=== PATIENT | male | born 1985 | race Caucasian/White ===

== ENCOUNTER 2023-07-13 11:56 | Outpatient (CLI) | payer OTHER, SELFPAY | END 2023-07-13 11:57 | disposition home or self-care (01) | LOC: AMB 07-19 01:54 | PROVIDERS: PCP Family Medicine; Visit Provider Family Medicine | DX: R41.82 Altered mental status, unspecified (principal); R20.0 Anesthesia of skin | CPT/HCPCS: A0425; A0427 ==

== ENCOUNTER 2023-07-13 12:32 | Observation (INO) | payer OTHER, SELFPAY ==
[2023-07-13] VITALS (21 sets, daily range): BP systolic 123–150; BP diastolic 78–110; PULSE 60–84; RESP 16–18; TEMP 36.6–37; O2SAT 94–99; BMI 41.7
--- NOTE | 2023-07-13 12:37 | CRLHL7_ITS ---
For Patients: As a result of the Century Cures Act, medical imaging exams and procedure reports are released immediately into your electronic medical record. You may view this report before your referring provider. If you have questions, please contact your health care provider. INDICATION: Acute stroke, right facial droop, arm numbness, aphasia. TECHNIQUE: CTA neck with contrast bolus tracking, 3D angiographic rendering using maximum intensity projection (MIP) and images permanently archived. FINDINGS: There is no significant carotid artery stenosis or dissection. There is no significant vertebral artery stenosis or dissection. The soft tissues of the neck are within normal limits. The cervical spine is in normal alignment. IMPRESSION: Unremarkable neck CTA. No significant carotid or vertebral artery stenosis or dissection. Please note that all CT scans at this facility use dose modulation, iterative reconstruction, and/or weight-based dosing when appropriate to reduce radiation dose to as low as reasonably achievable. Dictated by Medardo Rodriguez MD @ 07/13/2023 2:19:14 PM (Electronically Signed)
--- NOTE | 2023-07-13 12:37 | CRLHL7_ITS ---
For Patients: As a result of the Century Cures Act, medical imaging exams and procedure reports are released immediately into your electronic medical record. You may view this report before your referring provider. If you have questions, please contact your health care provider. INDICATION: Acute stroke, right facial droop, arm numbness, aphasia. TECHNIQUE: CTA head with contrast bolus tracking, 3D angiographic rendering using maximum intensity projection (MIP) and images permanently archived. FINDINGS: There is normal opacification of the intracranial vasculature. There is no large vessel occlusion. No aneurysm is identified. IMPRESSION: Unremarkable head CTA. Please note that all CT scans at this facility use dose modulation, iterative reconstruction, and/or weight-based dosing when appropriate to reduce radiation dose to as low as reasonably achievable. Dictated by Medardo Rodriguez MD @ 07/13/2023 2:17:50 PM (Electronically Signed)
--- NOTE | 2023-07-13 12:51 | CRLHL7_ITS ---
For Patients: As a result of the Cures Act, medical imaging exams and procedure reports are released immediately into your electronic medical record. You may view this report before your referring provider. If you have questions, please contact your health care provider. INDICATION: Right facial droop, arm numbness, aphasia COMPARISON: None. TECHNIQUE: CT of the head without contrast. Multiplanar reformats are included. FINDINGS: No intracranial hemorrhage. No acute or subacute cortically based infarct. Normal appearance of the white matter. No mass or mass effect. Normal ventricles. No skull fractures. No worrisome focal bone lesion. IMPRESSION: Normal head CT. Please note that all CT scans at this facility use dose modulation, iterative reconstruction, and/or weight-based dosing when appropriate to reduce radiation dose to as low as reasonably achievable. Dictated by Zahida Shay MD @ 07/13/2023 1:08:40 PM (Electronically Signed)
[2023-07-13 13:02] LABS: Basophils Absolute Auto 0.01 K/uL (0.00-0.30); Basophils Percent Auto 0.1 % (0.0-3.0); Eosinophils Absolute Auto 0.15 K/uL (0.00-0.50); Eosinophils Percent Auto 2.2 % (0.0-7.0); Hemoglobin* 14.5 gm/dL (13.5-17.5); Immature Granulocytes Abs Auto 0.01 K/uL (0.00-0.30); Immature Granulocytes Pct Auto 0.1 %; Lymphocytes Absolute Auto 2.25 K/uL (0.90-2.90); Mean Corpuscular HGB Conc 33 gm/dL (32-36); Mean Corpuscular Hemoglobin 29 pg (26-34); Mean Corpuscular Volume 86 fL (80-100); Monocytes Percent Auto 6.8 % (0.0-11.0); Neutrophils Absolute Auto 3.93 K/uL (1.7-7.0); Neutrophils Percent Auto 57.8 % (42.0-72.0); Platelet Count* 202 K/uL (140-440); RDW Coefficient of Variation % 11.8 % (11.5-15.5); Red Blood Count 5.09 m/uL (4.30-5.90); White Blood Count* 6.81 K/uL (4.50-11.00)
[2023-07-13 13:08] LABS: Slide Review Reflex No
[2023-07-13 13:14] LABS: Chloride* 105 mmol/L (96-114)
[2023-07-13 13:15] LABS: Potassium* 3.8 mmol/L (3.6-5.1); Sodium* 136 mmol/L (135-149)
[2023-07-13 13:17] LABS: Creatinine* 0.9 mg/dL (0.5-1.5); Estimated Glomerular Filt Rate 113 ml/min; INR 1.08 (0.91-1.10); Prothrombin Time 14.7 Seconds
[2023-07-13 13:18] LABS: Anion Gap 5 mEq/L (7-15); Blood Urea Nitrogen* 15 mg/dL (5-24); Calcium* 8.6 mg/dL (8.4-10.6); Carbon Dioxide* 26 mmol/L (20-32); Glucose* 99 mg/dL (60-115)
[2023-07-13 13:30] LABS: Troponin I* < 0.01 ng/mL (0.01-0.04)
--- NOTE | 2023-07-13 14:34 | CRLHL7_ITS ---
For Patients: As a result of the Century Cures Act, medical imaging exams and procedure reports are released immediately into your electronic medical record. You may view this report before your referring provider. If you have questions, please contact your health care provider. Indication: RT ARM NUMBNESS, FACIAL DROOP, DIFFICULTY FINDING WORDS Technique: Noncontrast sagittal T1, axial FLAIR, T2 turbo spine echo, and diffusion weighted images. Supplemental post contrast T1 weighted axial and coronal sequences are provided after administration of 20 mL gadolinium-based IV contrast. Comparison: No prior studies available for comparison at this institution. Findings: The ventricles, sulci and gyri are normal size, shape and contour for age. The midline structures are centrally located with no evidence of shift. There are no suspicious intra or extra-axial fluid collections. No evidence of restricted diffusion to suggest acute ischemia. The pituitary gland, optic chiasm, pineal gland, and cerebellar tonsils are unremarkable. Expected flow voids in the cavernous carotids and basilar artery. No abnormal contrast enhancement involving the brain parenchyma, meninges, calvarium or skull base. Mild membrane thickening in the paranasal sinuses. Impression: 1. No acute intracranial abnormality. 2. Unremarkable MRI of the brain parenchyma. 3. No pathologic enhancement. Dictated by Pako Crawford MD @ 07/13/2023 6:51:41 PM (Electronically Signed)
--- NOTE | 2023-07-13 15:11 | ED.NURSE ---
1500- okay to d/c stroke monitoring r/t satisfactory workup thus far
[2023-07-13] MEDS: ASPIRIN 81 MG TAB.CHEW 324 MG PO (15:38)
--- NOTE | 2023-07-13 17:35 | PC.NURSE ---
shift note: pt admit to floor @ 1600. pt ambulated to rm 260 with steady gait. pt denies n/v, dizziness or . bilat u/e and l/e strong. elevated BP. IV to Lt AC intact. Pt to MRI @ 1715.
[2023-07-13 17:41] LABS: Amphetamine Screen Urine Negative (Negative); Barbiturate Screen Urine Negative (Negative); Benzodiazepines Screen Urine Negative (Negative); Cannabinoid Screen Urine POSITIVE (Negative); Cocaine Screen Urine Negative (Negative); Methadone Screen Urine Negative (Negative); Methamphetamines Screen Urine Negative (Negative); Opiate Screen Urine Negative (Negative); Oxycodone Screen Urine Negative (Negative); Phencyclidine Screen Urine Negative (Negative); Tricyclic Antidepressant Urine Negative (Negative)
--- NOTE | 2023-07-13 20:02 | ED_ITS ---
HPI - General Adult General Date Seen: 07/13/23 Chief complaint: Neuro Symptoms/Altered Deficit Stated complaint: CVA Time Seen by Provider: 07/13/23 12:36 History of Present Illness HPI narrative: This is a 38-year-old previously healthy male brought to the ER today by EMS. History is obtained in part from EMS, in part from the patient, in part from his family He has been healthy and well lately. He was active in normal this morning. He took his daughter to her hair appointment. After doing that he came home and he was resting, laying on his stomach, on the couch. At about 11:40 a.m. he felt tingling in his right arm. He felt and knew that something was wrong. He thinking he might be having a heart attack he got up to take some medication. He tried to take some Tylenol and ibuprofen but he was not able to swallow it or the water because things were draining out the right side of his mouth. He was not able to talk but he was able to my am to his and she called 911. confirms the symptoms. She noted a right facial droop. When 1st responders arrived he was still aphasic and had right facial droop. By the time paramedics arrived his symptoms had largely abated and he is now completely back to normal. Total length the symptoms was probably 10-20 minutes. As he arrives here in the ER his face is normal. His speech is normal. His arm is normal. No other symptoms. No headache. No neck pain. No stiff neck. No recent falls. He does not take any medications. No recent injuries. He has no history of diabetes, high blood pressure, high cholesterol. No history of stroke. No family history of premature stroke. No family history of aneurysmal disease. Related Data Home Medications ?Medication ?Instructions ?Recorded ?Confirmed No Known Home Medications 07/13/23 07/13/23 Allergies Allergy/AdvReac Type Severity Reaction Status Date / Time No Known Allergies Allergy Unknown Unknown Verified 06/07/22 12:06 [facility] Family History (Updated 06/07/22 @ 12:06 by Elaina Barron ~ PSR) Other Diabetes Social History What is your current living situation?: I presently have a place to live Problems where you live: no known problems Problems where you live details: none In the past 12 months, utilities in danger of being shut off: no In past 12 months, lack of transportation kept you from medical appts, meetings, work, or getting things needed for daily living: no In the past 12 mos, have been you worried that your food would run out before you had money to buy more?: never true In the past 12 mos, the food you bought just didn't last and you didn't have money to buy more?: never true Highest level of school completed/degree received: high school graduate Smoking Status: Light tobacco smoker What tobacco products do you use: cigars Do you use any of these nicotine containing products: None Second hand tobacco smoke exposure: No How many standard drinks containing alcohol do you have on a typical day: 1 or 2 How often do you have six or more drinks on one occasion: Never AUDIT-C Alcohol total score: 0 Non-prescribed substance use: denies use Caffeine: Yes (soda 1/weekly) How often does anyone, including family, friends and others, physically hurt you : never How often does anyone, including family, friends and others, insult or talk down to you: never How often does anyone, including family, friends and others, threaten you with harm: never How often does anyone, including family, friends and others, scream or curse at you: never service: No Exam Narrative: Exam Narrative: First exam performed in hallway per EMS Primary Survey: A- patent. Speaking clearly. Phonation normal. No stridor. B- breathing easily. Lung sounds clear and equal. Oxygen saturation normal on room air C- no active bleeding. Blood pressure stable. Symmetric pulses and cap refill in 4 extremities. D- alert and oriented x3. GCS 15. No focal deficits. Constitutional: Appears well-developed and well-nourished. Alert. Conversant. Non toxic. HENT: Head: Atraumatic. Nose: Nose normal. Mouth/Throat: Oral mucosa is clear and moist. no trismus. Pharynx normal. Tonsils symmetric. No tonsillar enlargement, erythema, or exudate. Eyes: Conjunctivae normal. EOM normal. Pupils equal, round, and reactive to light. No scleral icterus. Neck: Normal range of motion. Neck supple. No tracheal deviation present. Cardiovascular: Normal rate, regular rhythm. No gallop. No friction rub. No murmur heard. Symmetric radial and posterior tibial artery pulses Pulmonary/Chest: Effort normal. No stridor. No respiratory distress. No wheezes. No rales. No rhonchi . No tenderness. Abdominal: Soft. Bowel sounds normal. No distension. No mass. No tenderness. No rebound. No guarding. Musculoskeletal: RUE: Normal range of motion. No tenderness. No deformity LUE: Normal range of motion. No tenderness. No deformity RLE: Normal range of motion. No edema. No tenderness. No deformity LLE: Normal range of motion. No edema. No tenderness. No deformity Neurological: Mental status normal. Attention normal. Alert and oriented x3. GCS 15. Memory normal. Speech fluent. Cognition normal. Cranial Nerves intact II-XII except I did not formally test gag or visual acuity. EOMI. Palate elevates symmetrically and tongue protrudes in the midline. Strength: 5/5 trapezius on the right and left 5/5 deltoid on the right and left 5/5 biceps on the right and left 5/5 triceps on the right and left 5/5 nozzle tender on the right and left 5/5 thumb opposition on the right and le ft 5/5 finger abduction on the right and le ft 5/5 hip flexors (L3) on the right and le ft 5/5 quadriceps (L4) on the right and lef t 5/5 tibialis anterior on the right and l eft 5/5 EHL (L5) on the right and left 5/5 gastrocnemius (S1) on the right and left 5/5 hamstring on the right and left Sensation intact to light touch in both upper extremities (C4-T1) Sensation intact to light touch in Both lower extremities (L4-S1). Finger to nose and coordination normal. Romberg negative. NIH stroke scale = 0 Skin: Skin is warm and dry. No rash noted. No pallor. Normal capillary refill. Psychiatric: Normal mood. Normal affect. Const: Vital Signs, click to edit/add: Vital Signs - 24 hr 07/13/23 12:48 07/13/23 13:34 07/13/23 13:35 Temperature 97.9 F Pulse Rate 72 67 Pulse Rate [Left P ulse Oximeter] 78 Respiratory Rate 18 Blood Pressure 130/79 Blood Pressure [Ri ght Upper Arm] 134/78 Pulse Oximetry 96 96 95 Oxygen Delivery Me thod Room Air 07/13/23 13:42 07/13/23 13:43 07/13/23 13:45 Temperature Pulse Rate 64 71 67 Pulse Rate [Left P ulse Oximeter] Respiratory Rate Blood Pressure 137/88 Blood Pressure [Ri ght Upper Arm] Pulse Oximetry 96 96 95 Oxygen Delivery Me thod 07/13/23 13:52 07/13/23 14:00 07/13/23 14:03 Temperature Pulse Rate 66 84 67 Pulse Rate [Left P ulse Oximeter] Respiratory Rate Blood Pressure 132/83 148/91 H Blood Pressure [Ri ght Upper Arm] Pulse Oximetry 97 97 97 Oxygen Delivery Me thod 07/13/23 14:12 07/13/23 14:15 07/13/23 14:22 Temperature Pulse Rate 62 66 60 Pulse Rate [Left P ulse Oximeter] Respiratory Rate Blood Pressure 129/89 135/86 Blood Pressure [Ri ght Upper Arm] Pulse Oximetry 97 96 97 Oxygen Delivery Me thod 07/13/23 14:30 07/13/23 14:32 07/13/23 14:42 Temperature Pulse Rate 65 64 66 Pulse Rate [Left P ulse Oximeter] Respiratory Rate Blood Pressure 134/87 123/81 Blood Pressure [Ri ght Upper Arm] Pulse Oximetry 96 96 97 Oxygen Delivery Me thod Course Vital Signs Vital signs: Initial Vital Signs Temperature 97.9 F 07/13/23 12:48 Temperature Source Temporal Artery Scan 07/13/23 12:48 Pulse Rate 78 07/13/23 12:48 Pulse Rhythm Regular 07/13/23 12:48 Pulse Strength 3+ Normal 07/13/23 12:48 Respiratory Rate 18 07/13/23 12:48 Blood Pressure 134/78 07/13/23 12:48 Blood Pressure Mean 96 07/13/23 12:48 Blood Pressure Position High-Fowlers 07/13/23 12:48 Pulse Oximetry 96 07/13/23 12:48 Oxygen Delivery Method Room Air 07/13/23 12:48 Vital Signs Temperature 97.9 F 07/13/23 12:48 Pulse Rate 78 07/13/23 12:48 Respiratory Rate 18 07/13/23 12:48 Blood Pressure 134/78 07/13/23 12:48 Pulse Oximetry 96 07/13/23 12:48 Oxygen Delivery Method Room Air 07/13/23 12:48 Temperature 98.1 F 07/13/23 19:00 Pulse Rate 77 07/13/23 19:00 Respiratory Rate 16 07/13/23 19:00 Blood Pressure 150/110 H 07/13/23 19:00 Pulse Oximetry 99 07/13/23 19:00 Oxygen Delivery Method Room Air 07/13/23 19:00 Medications Administered Medications: Discontinued Medications Generic Name Dose Route Start Last Admin Trade Name Blaine PRN Reason Stop Dose Admin Aspirin 324 mg 07/13/23 15:30 07/13/23 15:38 Aspirin 81 Mg Tab.Chew PO 07/13/23 15:31 324 mg ONCE ONE Administration Medical Decision Making MDM Narrative Medical decision making narrative: Very pleasant 38-year-old gentleman who is previously healthy presenting to the ER today by EMS for acute onset of right facial droop, right arm tingling, and expressive aphasia. Stroke team activation pre arrival. Symptoms are concerning for probable TIA. Symptoms resolved after about 10-20 minutes and he was completely asymptomatic and neurologically intact by the time he arrived here in the ER. NIH stroke scale was 0. We did send him for stat neuro imaging. Head CT is negative for intracranial hemorrhage. CT angiogram of his head neck shows no large vessel occlusion at no significant carotid atherosclerotic disease. ABCD2 score= 3. Concern here is that with a significant TIA in a young healthy person, he would be at risk for significant disability if he were to go on to have a completed stroke. Consultation with Stroke Neurology from [facility], Dr. garza. Her recommendation would be to get MRI with and without contrast (additional contrast because he is so young) and admit for TIA workup. EKG shows sinus rhythm. Laboratory workup does not give any explanation for possible cause of TIA. Suspect possible PFO or occult AFib with potentially cardioembolic. EKG shows sinus rhythm. Lab Data Labs: Lab Results 07/13/23 Range/Units 12:50 WBC 6.81 (4.50-11.00) K/uL RBC 5.09 (4.30-5.90) m/uL Hgb 14.5 (13.5-17.5) gm/dL Hct 44.0 (37.0-53.0) % MCV 86 (80-100) fL MCH 29 (26-34) pg MCHC 33 (32-36) gm/dL RDW Coeff of Cayla 11.8 (11.5-15.5) % Plt Count 202 (140-440) K/uL Neut % (Auto) 57.8 (42.0-72.0) % Lymph % (Auto) 33.0 (20-44) % Morehouse % (Auto) 6.8 (0.0-11.0) % Eos % (Auto) 2.2 (0.0-7.0) % Baso % (Auto) 0.1 (0.0-3.0) % Neut # (Auto) 3.93 (1.7-7.0) K/uL Lymph # (Auto) 2.25 (0.90-2.90) K/uL Morehouse # (Auto) 0.50 (0.00-0.90) K/UL Eos # (Auto) 0.15 (0.00-0.50) K/uL Baso # (Auto) 0.01 (0.00-0.30) K/uL Abs Immat Gran (auto) 0.01 (0.00-0.30) K/uL Imm/Tot Granulo (auto) 0.1 % INR 1.08 (0.91-1.10) Sodium 136 (135-149) mmol/L Potassium 3.8 (3.6-5.1) mmol/L Chloride 105 (96-114) mmol/L Carbon Dioxide 26 (20-32) mmol/L Anion Gap 5 L (7-15) mEq/L BUN 15 (5-24) mg/dL Creatinine 0.9 (0.5-1.5) mg/dL Estimated GFR 113 ml/min Glucose 99 (60-115) mg/dL Hemoglobin A1c 6.0 H (0-5.6) % Calcium 8.6 (8.4-10.6) mg/dL Troponin I < 0.01 L (0.01-0.04) ng/mL ECG Data Attestation: I personally reviewed and interpreted this ECG as follows: Interpretation: Normal sinus rhythm Rate: 60 SD: 176 QRS axis: normal ST segment/T wave: No STEMI QTc: 390 Discharge Plan Discharge Clinical Impression: Brain TIA
--- NOTE | 2023-07-13 20:38 | PM.IMHP1 ---
Hospitalist- H&P: HPI History of Present Illness Date Seen: 07/13/23 Chief complaint: CVA Narrative: Mack Muñiz is a 38 year old male without significant past medical history, not currently on any prescription medications, supplements, [id number] medications is admitted for observation for suspected TIA. Patient reports feeling well, his usual self over the last several days, waking this morning going about his normal business. Somewhere after 11:00 a.m. he laid down on the couch where his was resting. As they were talking, he started to notice that his right arm felt numb/tingly. He then noticed as he was speaking his words were in his brain but what was coming out of his mouth was more like grunts and noises. noted right facial droop. He stood up and motion for his to call 911. By the time the 1st responders arrived within a few minutes, he was able to state his name. By the time EMS arrived, his symptoms were resolving. He tells me the entire course of events lasted perhaps 15 minutes. On arrival to the ED, symptoms had completely resolved. He denies any associated headache or head or neck pains. Denies dizziness of any sort. Denies recent fevers or chills. Denies chest pain or shortness of breath. No palpitations. Denies nausea, vomiting, diarrhea. No change in urination. No abdominal pain. No recent falls or trauma. Nonsmoker. Does not vape. Occasional use of THC/gummies. No street drugs. Drinks 2 beers weekly during [employer] league. with children. Active. Does not work out in the sense of heavy lifting/weights at the gym. No known history of hypertension, hyperlipidemia, diabetes, thyroid disorder, migraines or neurological orders. Tore his meniscus in the past. Review of Systems Narrative: REVIEW OF SYSTEMS: Complete review of systems performed and negative unless otherwise stated in HPI or below. PFSH PFS Medical History Torn meniscus ?S83.209A - Unspecified tear of unspecified meniscus, current injury, unspecified knee, initial encounter (ICD-10) Family History Other Diabetes Social History What is your current living situation?: I presently have a place to live Problems where you live: no known problems Problems where you live details: none In the past 12 months, utilities in danger of being shut off: no In past 12 months, lack of transportation kept you from medical appts, meetings, work, or getting things needed for daily living: no In the past 12 mos, have been you worried that your food would run out before you had money to buy more?: never true In the past 12 mos, the food you bought just didn't last and you didn't have money to buy more?: never true Highest level of school completed/degree received: high school graduate Smoking Status: Light tobacco smoker What tobacco products do you use: cigars Do you use any of these nicotine containing products: None Second hand tobacco smoke exposure: No How many standard drinks containing alcohol do you have on a typical day: 1 or 2 How often do you have six or more drinks on one occasion: Never AUDIT-C Alcohol total score: 0 Non-prescribed substance use: denies use Caffeine: Yes (soda 1/weekly) How often does anyone, including family, friends and others, physically hurt you: never How often does anyone, including family, friends and others, insult or talk down to you: never How often does anyone, including family, friends and others, threaten you with harm: never How often does anyone, including family, friends and others, scream or curse at you: never service: No Meds Home Medications and Allergies Home Medications ?Medication ?Instructions ?Recorded ?Confirmed ?Type No Known Home Medications 07/13/23 07/13/23 History Allergies Allergy/AdvReac Type Severity Reaction Status Date / Time No Known Allergies Allergy Unknown Unknown Verified 06/07/22 12:06 Exam Narrative: Exam Narrative: PHYSICAL EXAM General: Pleasant, conversant, NAD HEENT: Normocephalic, atraumatic, sclera white, EOMI, oral mucosa moist Cardiovascular: RRR, S1S2. No pitting edema Pulmonary: CTA bilaterally without rhonchi, rales, expiratory wheezes. No dyspnea Abdominal: Soft, nondistended, NTTP Neurological: Alert, answering questions appropriately, cranial nerves intact, no focal findings, neuro exam unremarkable Extremities: No gross joint deformity or swelling. AROMI. Neurovascularly intact Skin: Warm, dry. Const: Vital Signs, click to edit/add: Vital Signs - 24 hr 07/13/23 12:48 07/13/23 13:34 07/13/23 13:35 Temperature 97.9 F Pulse Rate 72 67 Pulse Rate [Left P ulse Oximeter] 78 Pulse Rate [Right Brachial] Respiratory Rate 18 Blood Pressure 130/79 Blood Pressure [Ri ght Arm] Blood Pressure [Ri ght Upper Arm] 134/78 Pulse Oximetry 96 96 95 Oxygen Delivery Me thod Room Air 07/13/23 13:42 07/13/23 13:43 07/13/23 13:45 Temperature Pulse Rate 64 71 67 Pulse Rate [Left P ulse Oximeter] Pulse Rate [Right Brachial] Respiratory Rate Blood Pressure 137/88 Blood Pressure [Ri ght Arm] Blood Pressure [Ri ght Upper Arm] Pulse Oximetry 96 96 95 Oxygen Delivery Me thod 07/13/23 13:52 07/13/23 14:00 07/13/23 14:03 Temperature Pulse Rate 66 84 67 Pulse Rate [Left P ulse Oximeter] Pulse Rate [Right Brachial] Respiratory Rate Blood Pressure 132/83 148/91 H Blood Pressure [Ri ght Arm] Blood Pressure [Ri ght Upper Arm] Pulse Oximetry 97 97 97 Oxygen Delivery Me thod 07/13/23 14:12 07/13/23 14:15 07/13/23 14:22 Temperature Pulse Rate 62 66 60 Pulse Rate [Left P ulse Oximeter] Pulse Rate [Right Brachial] Respiratory Rate Blood Pressure 129/89 135/86 Blood Pressure [Ri ght Arm] Blood Pressure [Ri ght Upper Arm] Pulse Oximetry 97 96 97 Oxygen Delivery Me thod 07/13/23 14:30 07/13/23 14:32 07/13/23 14:42 Temperature Pulse Rate 65 64 66 Pulse Rate [Left P ulse Oximeter] Pulse Rate [Right Brachial] Respiratory Rate Blood Pressure 134/87 123/81 Blood Pressure [Ri ght Arm] Blood Pressure [Ri ght Upper Arm] Pulse Oximetry 96 96 97 Oxygen Delivery Me thod 07/13/23 15:46 07/13/23 15:47 07/13/23 19:00 Temperature 98.1 F 98.1 F Pulse Rate Pulse Rate [Left P ulse Oximeter] Pulse Rate [Right Brachial] 62 77 Respiratory Rate 16 16 16 Blood Pressure Blood Pressure [Ri ght Arm] 135/106 H 150/110 H Blood Pressure [Ri ght Upper Arm] Pulse Oximetry 94 96 99 Oxygen Delivery Me thod Room Air Room Air Room Air Hospitalist - H&P: Result Labs Labs: Short CBC 07/13/23 Range/Units 12:50 WBC 6.81 (4.50-11.00) K/uL Hgb 14.5 (13.5-17.5) gm/dL Hct 44.0 (37.0-53.0) % Plt Count 202 (140-440) K/uL BMP 07/13/23 12:50 Sodium 136 Potassium 3.8 Chloride 105 Carbon Dioxide 26 BUN 15 Creatinine 0.9 Glucose 99 Calcium 8.6 Cardiac Enzymes 07/13/23 Range/Units 12:50 Troponin I < 0.01 L (0.01-0.04) ng/mL ECG ECG interpretation date: 07/13/23 Interpretation: NSR, rate 60, QTC [address] scan - head: Attestation: I have reviewed the pertinent imaging results. Radiologist's impression: CT of the head without contrast. Multiplanar reformats are included. FINDINGS: No intracranial hemorrhage. No acute or subacute cortically based infarct. Normal appearance of the white matter. No mass or mass effect. Normal ventricles. No skull fractures. No worrisome focal bone lesion. IMPRESSION: Normal head CT. CTA neck: Attestation: I have reviewed the pertinent imaging results. Radiologist's impression: CTA neck with contrast bolus tracking, 3D angiographic rendering using maximum intensity projection (MIP) and images permanently archived. FINDINGS: There is no significant carotid artery stenosis or dissection. There is no significant vertebral artery stenosis or dissection. The soft tissues of the neck are within normal limits. The cervical spine is in normal alignment. IMPRESSION: Unremarkable neck CTA. CTA head: Attestation: I have reviewed the pertinent imaging results. Radiologist's impression: CTA head with contrast bolus tracking, 3D angiographic rendering using maximum intensity projection (MIP) and images permanently archived. FINDINGS: There is normal opacification of the intracranial vasculature. There is no large vessel occlusion. No aneurysm is identified. IMPRESSION: Unremarkable head CTA. MRI - head: Attestation: I have reviewed the pertinent imaging results. Radiologist's impression: Noncontrast sagittal T1, axial FLAIR, T2 turbo spine echo, and diffusion weighted images. Supplemental post contrast T1 weighted axial and coronal sequences are provided after administration of 20 mL gadolinium-based IV contrast. Comparison: No prior studies available for comparison at this institution. Findings: The ventricles, sulci and gyri are normal size, shape and contour for age. The midline structures are centrally located with no evidence of shift. There are no suspicious intra or extra-axial fluid collections. No evidence of restricted diffusion to suggest acute ischemia. The pituitary gland, optic chiasm, pineal gland, and cerebellar tonsils are unremarkable. Expected flow voids in the cavernous carotids and basilar artery. No abnormal contrast enhancement involving the brain parenchyma, meninges, calvarium or skull base. Mild membrane thickening in the paranasal sinuses. Impression: 1. No acute intracranial abnormality. 2. Unremarkable MRI of the brain parenchyma. 3. No pathologic enhancement. Assessment and Plan Assessment and plan (1) Brain TIA: Problem comment: Symptoms lasting approximately 15 minutes, completely resolved upon arrival to ED CT head normal, CTA head unremarkable, CTA neck unremarkable, no significant carotid or vertebral artery stenosis or dissection MRI brain shows no acute intracranial abnormality, unremarkable brain parenchyma, no pathologic enhancement Hemoglobin A1c 6.0 EKG shows NSR, ventricular rate 60, QTC 390, troponin <0.01 ED provider discussed with tele neurology service recommended overnight observation, neuro checks, telemetry, echocardiogram tomorrow Lipids, TSH ordered Neurology follow-up Status: Acute Total Time Spent Total Time Spent: Total time spent caring for the patient today was 75 minutes. This includes time spent for the visit reviewing the chart, time spent during the visit, time spent after the visit and documentation and planning in coordination of care.
[2023-07-13] MEDS: SODIUM CHLORIDE 0.9 % (FLUSH) 10 ML SYRINGE 5 ML IVF (22:53)
[2023-07-14 00:35] VITALS: PULSE 64
[2023-07-14 02:55] VITALS: BP 120/76; PULSE 71; RESP 16; TEMP 36.6; O2SAT 95
[2023-07-14 04:00] VITALS: PULSE 71
--- NOTE | 2023-07-14 05:48 | PC.NURSE ---
Shift note: Pt is doing well, a/o. Not neurologic symptoms noted. Vitals are stable this morning. Pt is independent in room.
[2023-07-14 07:43] LABS: Hematocrit 46.7 % (37.0-53.0); Hemoglobin* 15.5 gm/dL (13.5-17.5); Mean Corpuscular HGB Conc 33 gm/dL (32-36); Mean Corpuscular Hemoglobin 29 pg (26-34); Mean Corpuscular Volume 86 fL (80-100); Platelet Count* 228 K/uL (140-440); Red Blood Count 5.42 m/uL (4.30-5.90); White Blood Count* 7.36 K/uL (4.50-11.00)
[2023-07-14 07:45] LABS: Slide Review Reflex No
[2023-07-14 08:00] VITALS: PULSE 78
[2023-07-14 08:03] VITALS: BP 134/95; PULSE 65; RESP 18; TEMP 36.6; O2SAT 97
[2023-07-14 08:06] LABS: Chloride* 106 mmol/L (96-114); Potassium* 3.7 mmol/L (3.6-5.1); Sodium* 140 mmol/L (135-149)
[2023-07-14 08:09] LABS: Anion Gap 6 mEq/L (7-15); Blood Urea Nitrogen* 15 mg/dL (5-24); Calcium* 8.8 mg/dL (8.4-10.6); Carbon Dioxide* 28 mmol/L (20-32); Cholesterol* 224 mg/dL (90-199); Creatinine* 0.9 mg/dL (0.5-1.5); Est. Creatinine Clearance* 123.35; Estimated Glomerular Filt Rate 113 ml/min; Glucose* 102 mg/dL (60-115); Triglycerides* 187 mg/dL (40-149)
[2023-07-14 08:10] LABS: HDL Cholesterol* 30 mg/dL (>=40); LDL Cholesterol Calculated 157 mg/dL (<100)
[2023-07-14] MEDS: ROSUVASTATIN CALCIUM 10 MG TABLET 40 MG PO (10:58)
[2023-07-14] MEDS: CLOPIDOGREL 75 MG TABLET PO (10:59)
[2023-07-14 11:00] VITALS: BP 139/94; PULSE 59; RESP 18; TEMP 36.8; O2SAT 96
[2023-07-14] MEDS: PERFLUTREN LIPID MICROSPHERES 2 ML VIAL IV (12:19)
--- NOTE | 2023-07-14 12:38 | PC.NURSE ---
shift note: pt up indept in [place]. pt denies c.p or pressure. pt denies n/v, or dizziness. extemities x4 strong. vss wnl. IV dc'd intact lt AC. Reviewed dc instructions and copies sent with pt at nd. Belongings reviewed and sent with pt at nd.
[2023-07-14] MEDS: ASPIRIN 81 MG TABLET EC PO (12:43)
--- NOTE | 2023-07-14 12:45 | PM.DS1 ---
DS: Providers Provider Date Seen: 07/14/23 Date of admission: 07/13/23 15:38 Primary care physician: Marquise Grullon MD Admitting Clinician: Peg Liz MD Attending Physician on discharge: Earl Lund MD Date of Discharge: 07/14/23 DS: Diagnosis Discharge Diagnosis (1) Brain TIA: Status: Acute Problem details: Patient had 15 minute episode of right arm weakness, right facial droop, expressive aphasia witnessed by his yesterday, the day of admission. Completely resolved by arrival of paramedics. CT head normal, CTA head unremarkable, CTA neck unremarkable, no significant carotid or vertebral artery stenosis or dissection MRI brain shows no acute intracranial abnormality, unremarkable brain parenchyma, no pathologic enhancement Hemoglobin A1c 6.0 EKG shows NSR, ventricular rate 60, QTC 390, troponin <0.01 Patient has dyslipidemia. Hemoglobin A1c is 6.0. Started on aspirin 81 mg daily, clopidogrel 75 mg daily for 3 weeks, rosuvastatin 40 mg daily. (2) Hyperlipidemia: Status: Acute Problem details: Rosuvastatin 40 mg daily. (3) Elevated blood sugar: Status: Acute Problem details: Review management of blood sugar, diet and weight with primary provider. (4) Obesity: Status: Acute Problem details: Review management of weight with primary care provider DS: Summary Hospital Course Hospital Course: 38-year-old male had abrupt onset of right arm weakness, right facial droop, expressive aphasia at home. This was witnessed by his . She called 911 and by the time the paramedics arrived, 15 minutes later, symptoms had resolved. He has been fine since that time with no neurologic abnormalities. Evaluation in the emergency department was normal including neurologic evaluation, imaging with CT, CTA and MRI also normal. Telemetry and electrocardiogram showed normal sinus rhythm. Echocardiogram is normal. Through his hospital stay he remained asymptomatic. Status at Discharge Functional status at discharge: independent ambulation Overall status at discharge: patient is back to baseline Time Spent with Patient Time attestation: Total time spent providing and/or coordinating discharge services: Time spent: Greater than 30 minutes Exam Narrative: Exam Narrative: He is alert in no distress. Speech is fluent. No facial asymmetry. He moves all 4 extremities well without focal weakness or apraxia. Const: Vital Signs, click to edit/add: Vital Signs - 24 hr 07/13/23 12:48 07/13/23 13:34 07/13/23 13:35 Temperature 97.9 F Pulse Rate 72 67 Pulse Rate [Left P ulse Oximeter] 78 Pulse Rate [Right Brachial] Respiratory Rate 18 Blood Pressure 130/79 Blood Pressure [Ri ght Arm] Blood Pressure [Ri ght Upper Arm] 134/78 Pulse Oximetry 96 96 95 Oxygen Delivery Me thod Room Air 07/13/23 13:42 07/13/23 13:43 07/13/23 13:45 Temperature Pulse Rate 64 71 67 Pulse Rate [Left P ulse Oximeter] Pulse Rate [Right Brachial] Respiratory Rate Blood Pressure 137/88 Blood Pressure [Ri ght Arm] Blood Pressure [Ri ght Upper Arm] Pulse Oximetry 96 96 95 Oxygen Delivery Me thod 07/13/23 13:52 07/13/23 14:00 07/13/23 14:03 Temperature Pulse Rate 66 84 67 Pulse Rate [Left P ulse Oximeter] Pulse Rate [Right Brachial] Respiratory Rate Blood Pressure 132/83 148/91 H Blood Pressure [Ri ght Arm] Blood Pressure [Ri ght Upper Arm] Pulse Oximetry 97 97 97 Oxygen Delivery Me thod 07/13/23 14:12 07/13/23 14:15 07/13/23 14:22 Temperature Pulse Rate 62 66 60 Pulse Rate [Left P ulse Oximeter] Pulse Rate [Right Brachial] Respiratory Rate Blood Pressure 129/89 135/86 Blood Pressure [Ri ght Arm] Blood Pressure [Ri ght Upper Arm] Pulse Oximetry 97 96 97 Oxygen Delivery Me thod 07/13/23 14:30 07/13/23 14:32 07/13/23 14:42 Temperature Pulse Rate 65 64 66 Pulse Rate [Left P ulse Oximeter] Pulse Rate [Right Brachial] Respiratory Rate Blood Pressure 134/87 123/81 Blood Pressure [Ri ght Arm] Blood Pressure [Ri ght Upper Arm] Pulse Oximetry 96 96 97 Oxygen Delivery Me thod 07/13/23 15:46 07/13/23 15:47 07/13/23 19:00 Temperature 98.1 F 98.1 F Pulse Rate Pulse Rate [Left P ulse Oximeter] Pulse Rate [Right Brachial] 62 77 Respiratory Rate 16 16 16 Blood Pressure Blood Pressure [Ri ght Arm] 135/106 H 150/110 H Blood Pressure [Ri ght Upper Arm] Pulse Oximetry 94 96 99 Oxygen Delivery Me thod Room Air Room Air Room Air 07/13/23 20:35 07/13/23 20:35 07/13/23 22:51 Temperature 98.6 F Pulse Rate Pulse Rate [Left P ulse Oximeter] Pulse Rate [Right Brachial] 64 64 64 Respiratory Rate 16 16 Blood Pressure Blood Pressure [Ri ght Arm] 141/87 H Blood Pressure [Ri ght Upper Arm] Pulse Oximetry 95 Oxygen Delivery Ne thod Room Air 07/13/23 22:51 07/13/23 23:04 07/14/23 00:35 Temperature 98.6 F Pulse Rate 64 Pulse Rate [Left P ulse Oximeter] Pulse Rate [Right Brachial] 64 64 Respiratory Rate 16 Blood Pressure Blood Pressure [Ri ght Arm] 141/87 H Blood Pressure [Ri ght Upper Arm] Pulse Oximetry 95 Oxygen Delivery Ne thod Room Air 07/14/23 02:55 07/14/23 04:00 07/14/23 08:00 Temperature 97.8 F Pulse Rate Pulse Rate [Left P ulse Oximeter] Pulse Rate [Right Brachial] 71 71 78 Respiratory Rate 16 Blood Pressure Blood Pressure [Ri ght Arm] 120/76 Blood Pressure [Ri ght Upper Arm] Pulse Oximetry 95 Oxygen Delivery Ne thod Room Air 07/14/23 08:03 07/14/23 11:00 Temperature 97.8 F 98.2 F Pulse Rate Pulse Rate [Left P ulse Oximeter] Pulse Rate [Right Brachial] 65 59 L Respiratory Rate 18 18 Blood Pressure Blood Pressure [Ri ght Arm] 134/95 H 139/94 H Blood Pressure [Ri ght Upper Arm] Pulse Oximetry 97 96 Oxygen Delivery Ne thod Room Air Room Air Documenting provider has reviewed patient's vital signs: yes DS: Data Data Completed and Pending Labs on day of discharge: Labs from last 24 hours 07/14/23 07/13/23 07/13/23 06:44 17:19 12:50 WBC 7.36 6.81 RBC 5.42 5.09 Hgb 15.5 14.5 Hct 46.7 44.0 MCV 86 86 MCH 29 29 MCHC 33 33 RDW Coeff of Cayla 11.8 Plt Count 228 202 Neut % (Auto) 57.8 Lymph % (Auto) 33.0 [place] % (Auto) 6.8 Eos % (Auto) 2.2 Baso % (Auto) 0.1 Neut # (Auto) 3.93 Lymph # (Auto) 2.25 [place] # (Auto) 0.50 Eos # (Auto) 0.15 Baso # (Auto) 0.01 Abs Immat Gran (auto) 0.01 Imm/Tot Granulo (auto) 0.1 INR 1.08 Sodium 140 136 Potassium 3.7 3.8 Chloride 106 105 Carbon Dioxide 28 26 Anion Gap 6 L 5 L BUN 15 15 Creatinine 0.9 0.9 Estimated Creat Clear 123.35 Estimated GFR 113 113 Glucose 102 99 Hemoglobin A1c 6.0 H Calcium 8.8 8.6 Troponin I < 0.01 L Triglycerides 187 H Cholesterol 224 H LDL Cholesterol, Calc 157 H HDL Cholesterol 30 L TSH 3.690 Urine Opiates Screen Negative Ur Oxycodone Screen Negative Urine Methadone Screen Negative Ur Barbiturates Screen Negative U Tricyclic Antidepress Negative Ur Phencyclidine Scrn Negative Ur Amphetamines Screen Negative U Methamphetamines Scrn Negative U Benzodiazepines Scrn Negative Urine Cocaine Screen Negative U Marijuana (THC) Screen POSITIVE A Ur Drug Screen Comment See Note Imaging MR Brain: Radiologist's impression: Indication: RT ARM NUMBNESS, FACIAL DROOP, DIFFICULTY FINDING WORDS Technique: Noncontrast sagittal T1, axial FLAIR, T2 turbo spine echo, and diffusion weighted images. Supplemental post contrast T1 weighted axial and coronal sequences are provided after administration of 20 mL gadolinium-based IV contrast. Comparison: No prior studies available for comparison at this institution. Findings: The ventricles, sulci and gyri are normal size, shape and contour for age. The midline structures are centrally located with no evidence of shift. There are no suspicious intra or extra-axial fluid collections. No evidence of restricted diffusion to suggest acute ischemia. The pituitary gland, optic chiasm, pineal gland, and cerebellar tonsils are unremarkable. Expected flow voids in the cavernous carotids and basilar artery. No abnormal contrast enhancement involving the brain parenchyma, meninges, calvarium or skull base. Mild membrane thickening in the paranasal sinuses. Impression: 1. No acute intracranial abnormality. 2. Unremarkable MRI of the brain parenchyma. 3. No pathologic enhancement. CT- Other: Radiologist's impression: CTA neck: INDICATION: Acute stroke, right facial droop, arm numbness, aphasia. TECHNIQUE: CTA neck with contrast bolus tracking, 3D angiographic rendering using maximum intensity projection (MIP) and images permanently archived. FINDINGS: There is no significant carotid artery stenosis or dissection. There is no significant vertebral artery stenosis or dissection. The soft tissues of the neck are within normal limits. The cervical spine is in normal alignment. IMPRESSION: Unremarkable neck CTA. CTA head: INDICATION: Acute stroke, right facial droop, arm numbness, aphasia. TECHNIQUE: CTA head with contrast bolus tracking, 3D angiographic rendering using maximum intensity projection (MIP) and images permanently archived. FINDINGS: There is normal opacification of the intracranial vasculature. There is no large vessel occlusion. No aneurysm is identified. IMPRESSION: Unremarkable head CTA. Discharge Plan Discharge Disposition: Home, Self-Care Date of Admission: 07/13/23 15:38 Attending Provider on Discharge: Jarrell Lund Primary Care Provider: Marquise Grullon Condition: Improved Anticipated Discharge Date/Time: 07/14/23 13:00 Discharge Medications: New aspirin 81 mg Tablet,Delayed Release (Dr/Ec) 81 mg PO DAILY Qty: 100 0RF clopidogrel 75 mg Tablet 75 mg PO DAILY Qty: 20 0RF rosuvastatin 40 mg tablet 40 mg PO DAILY Qty: 90 0RF Discharge Orders: Discharge Order (Routine); Ordered 07/14/23 Ordered By: Jarrell Lund Patient Education: Aspirin (By mouth), Clopidogrel (By mouth), Rosuvastatin (By mouth), Transient Ischemic Attack (DC) Additional Instructions: Follow-up in clinic in 1-2 weeks to review prevention of stroke and cardiovascular disease. Activity Level: No Restrictions Discharge Diet: Heart Healthy (2 gm sodium, low fat) Follow Up Appointments: Pako Larson MD [Staff Physician] - 07/20/23 11:15 am ([facility] for follow up ) Marquise Grullon MD [Primary Care Provider] - Forms: [employer] Info Instructions
== END 2023-07-14 13:00 | disposition home or self-care (01) ==
LOC: ED 13:08 → MEDSURG 15:38
PROVIDERS: Admitting Provider Family Medicine; Emergency Provider Emergency Medicine; PCP Family Medicine; Visit Provider Physician Assistant
DX: G45.9 Transient cerebral ischemic attack, unspecified (principal); E78.2 Mixed hyperlipidemia; R73.9 Hyperglycemia, unspecified; R29.810 Facial weakness; R47.01 Aphasia; R20.2 Paresthesia of skin; F17.290 Nicotine dependence, other tobacco product, uncomplicated
CPT/HCPCS: 36415; 70450; 70496; 70498; 70553; 80048; 80061; 80306; 83036; 84443; 84484; 85025; 85027; 85610; 93005; 93306; 99284; 99285; G0378; A9270; A9575; Q9957; Q9967

== ENCOUNTER 2023-08-13 19:19 | Outpatient (CLI) | payer OTHER, SELFPAY ==
--- OUTSIDE RECORDS SUMMARY | 2023-08-13 19:22 | XMS_ITS | Clinical Summary ---
Author Organization [facility] Address [address] [place] [address] Care Team Providers Care Laboratory Coordinator Name Role Phone Needs Pcp, Assignment Primary Care Provider [phone] Source Comments You are receiving this document as you are listed as the primary care provider,follow-up provider, or the patient has been referred to you for consultation.This is in compliance with the Medicare and[facility] EHR Incentive Program,which states Providers who transition their patient to another setting of careor provider of care or refers their patient to another provider of care shouldprovide summary care record for each transition of care or referral. [employer] Allergies No known active allergies Medications Medication Sig Dispensed Refills Start Date End Date Status triamcinolone acetonide (AKA KENALOG) 0.1 % ointment Apply 1 Application topically 3 times daily as needed. 60 3 04/22/2004 Active Additional Information Patient not taking.Reported on 05/01/2016 methylPREDNISolone (MEDROL 21 TABLET DOSEPACK) 4 MG tabletIndications:Co ntact dermatitis, unspecified contact dermatitis type, unspecified trigger Follow package directions 21 Tab 0 05/01/2016 Active Encounters Date Type Department Care Team Description 05/16/2023 7:40 AM CDT Office Visit [facility] [address] [place] [address] Vicky Wayne, PARakanC Sprain of lateral collateral ligament of right knee, initial encounter (Primary Dx); Injury of right knee, initial encounter 05/16/2023 7:35 AM CDT Ancillary Procedure [facility] [place] [address] [address] [address] [place] [address] Vicky Wayne, PARakanC Acute pain of right knee from Last 3 Months Immunizations Name Administration Dates Next Due DTP 07/28/1991, 9,1986,1986,1986 HepB Adult (Engerix-B, 20+ y rs, 3 dose series) 10/07/1998,08/03/1998 HepB, Unspecified Formulation 05/24/2000 MMR 08/03/1998,10/10/1987 OPV, Trivalent (Orimune or tOPV) 992,02/23/1988,1986,1986 Td 08/03/1998 Social History Tobacco Use Types Packs/Day Years Used Date Smoking Tobacco: Never Alcohol Use Standard Drinks/Week Comments Yes 0 (1 standard drink = 0.6 oz pur e alcohol) Sex and Gender Information Value Date Recorded Sex Assigned at Not on file Gender Identity Not on file Sexual Orientation Not on file Last Filed Vital Signs Vital Sign Reading Time Taken Comments Blood Pressure 110/76 05/01/2016 10:31 AM CDT Pulse 72 05/01/2016 10:31 AM CDT Temperature 36.9 ??C (98.4 ??F) 05/01/2016 10:31 AM C DT Respiratory Rate 16 05/01/2016 10:31 AM CDT Oxygen Saturation - - Inhaled Oxygen Concentration - - Weight 129.7 kg (286 lb) 05/01/2016 10:31 AM CDT Height 182.2 cm (5' 11.75) 05/01/2016 10:31 AM CDT Body Mass Index 39.06 05/01/2016 10:31 AM CDT Plan of Treatment Health Maintenance Due Date Last Done Comments Hep C Screening (Preventive Services) 1986 HIV Screening (Preventive Services) 2002 Adult Preventive Visit 01/29/2004 Cholesterol 2021 COVID-19 Vaccine ( season) 2022 Influenza (Season Ended) 2023 DTaP/Tdap/Td (7 - Tdap) 10/20/2029 10/21/19 20, 08/03/1998, 08/03/1998, Additional history exists Zoster/Shingles (1 of 2) 01/29/2036 IPV (Polio) Completed 07/28/1991, 05/1988, 1986, Additional history exists HepB Completed 05/24/2000, 09/19, 08/03/1998 HPV Vaccine Aged Out No longer eligi ble based on patient's age to complete this topic HepA Aged Out No longer eligi ble based on patient's age to complete this topic Hib Aged Out No longer eligi ble based on patient's age to complete this topic MCV4 Aged Out No longer eligi ble based on patient's age to complete this topic Pneumococcal Aged Out No longer eligi ble based on patient's age to complete this topic Procedures Procedure Name Priority Date/Time Associated Diagnosis Comments XR KNEE RT 3 VIEWS Routine 05/16/2023 7: 40 AM CDT Acute pain of right knee from Last 3 Months Results * XR Knee Rt 3 Views (05/16/2023 7:40 AM CDT) Anatomical Region Laterality Modality Lower Extremity, Knee Digital Ra diography 05/16/2023 7:34 AM CDT Impressions 05/16/2023 7:42 AM CDT COMPARISON: ??None. FINDINGS: ??3 views obtained. No acute fracture. No significant medial compartment or lateral compartment osteoarthritic degenerative narrowing. No significant patellofemoral compartment osteoarthritic degenerative narrowing. Trace physiologic joint fluid. Broad-based, triangular 2.3 x 1.5 cm osteochondroma off the posterior-lateral aspect of the proximal fibular metadiaphysis. Narrative Procedure Note Jadon Casarez MD - 05/16/2023 IMPRESSION COMPARISON: None. FINDINGS: 3 views obtained. No acute fracture. No significant medialcompartment or lateral compartment osteoarthritic degenerative narrowing.No significant patellofemoral compartment osteoarthritic degenerativenarrowing. Trace physiologic joint fluid. Broad-based, triangular 2.3 x1.5 cm osteochondroma off the posterior-lateral aspect of the proximalfibular metadiaphysis. Vicky COOL GD from Last 3 Months Care Teams Laboratory Coordinator Relationship Specialty Start Date End Date Needs Pcp, [place], [place] [id number] PCP - General 05/01/16
--- OUTSIDE RECORDS SUMMARY | 2023-08-13 19:22 | XMS_ITS | Encounter Summary ---
Author Organization [facility] Address [address] [place] [address] Care Team Providers Care Nutritional Services Director Name Role Phone Needs Pcp, Assignment Primary Care Provider Reason for Referral * Therapies (Routine) - New Request Specialty Diagnoses / Procedures Referred By Lula gaviria Referred To Contact Diagnoses Acute pain of right knee Vicky Wayne PA-C [address] [place] [address] Referral ID Status Reason Start Date Expiration Date V isits Requested Visits Authorized [id number] New Request 05/16/2023 05/15/2024 1 1 Scheduling Instructions Your clinician has recommended an appointment with Physical Therapy and Rehabilitation Services. You can quickly make your appointment online at [facility]/schedule. You can also call [phone] for help scheduling your appointment. We suggest you call your health insurance company about your coverage and benefits for this appointment. Question Answer Appointment Urgency? Non-Urgent Requested Services Evaluate and treat May use saline for irrigation or cleansing Yes dexamethasone use Yes May check glucose per protocol (see policy link below) or if patient has symptoms? Yes Comments Right knee injury, suspected meniscus tear, LCL sprain. Eval and treat. * Procedure/Equipment (Routine) - Incomplete Specialty Diagnoses / Procedures Referred By Lula gaviria Referred To Contact Diagnoses Acute pain of right knee Procedures XR Knee Rt 3 Views Vicky Wayne PA-C [address] [place] [id number] Referral ID Status Reason Start Date Expiration Date V isits Requested Visits Authorized [id number] Incomplete 05/16/2023 08/14/2024 1 1 Reason for Visit * Reason Comments Knee Pain or Injury Right knee, fell/twi sted while bowling about 2 weeks ago Encounter Details Date Type Department Care Team (Late st Contact Info) Description 05/16/2023 7:40 AM CDT Office Visit [facility] [address] [place] [address] Vicky Wayne PA-C [address] [facility] [place] [address] Sprain of lateral collateral ligament of right knee, initial encounter (Primary Dx); Injury of right knee, initial encounter Social History Tobacco Use Types Packs/Day Years Used Date Smoking Tobacco: Never Alcohol Use Standard Drinks/Week Comments Yes 0 (1 standard drink = 0.6 oz pur e alcohol) Sex and Gender Information Value Date Recorded Sex Assigned at Not on file Gender Identity Not on file Sexual Orientation Not on file documented as of this encounter Patient Instructions * Patient Instructions* Vicky Wayne PA-C - 05/16/2023 7:40 AM CDT You can do all of this together: 1000mg Tylenol up to 3 times a day as needed for pain. 600mg ibuprofen every 6 hours as needed for pain, especially before activity. Rub Voltaren Gel/Diclofenac Gel (topical antiinflammatory) over the affected joint up to 4 times a day. Ice for 20 minutes 3-4 times a day, especially after activity. Lidocaine patch - okay for nighttime use, but not recommended during the day. Do not take multiple NSAIDs at the same time. Meaning pick one and stick with that one. They work the same in the body and can cause kidney trouble if you take too much. Examples of NSAIDs: ibuprofen, Motrin, Advil, Naproxen, Aleve, Toradol, Celebrex. It is not recommended to take NSAIDs when also on a blood thinner. documented in this encounter Progress Notes * Vicky Wayne PA-C - 05/16/2023 7:40 AM CDT Subjective: Chief Complaint Right Knee Pain Mack Muñiz is a 38 y.o. male presents for evaluation and treatment of right knee pain. He reports onset of pain about 2 weeks ago when he was bowling. He states he fell on his left knee and may have twisted his right knee underneath him. He complains of sharp pain with movement and throbbingpain when seated along the lateral and anterior aspects of his knee. He notices an increase in painwith twisting, prolonged sitting, and driving. Denies swelling, bruising, numbness, tingling. He has not had issues with this knee past. He has had decreased range mainly with knee flexion due to pain. He has not noted cracking with stairs and bending since the injury, but denies other mechanical symptoms. He has not been utilizing anything for pain management. Past Medical History, Past Surgical History, Social History, and Family Medical History was reviewed and updated as appropriate. A complete review of systems was reviewed per the intake sheet and negative except as noted in HPI. No Known Allergies Objective: General : alert, cooperative, no distress, appears stated age Gait: Normal. The patient can bear weight on the injured extremity. Skin: Clean, dry, intact. No rashes or lesions. Right Lower Extremity Knee Effusion: 1+ Ecchymosis: none Tenderness: Patellar tendon, LCL, lateral joint line Knee ROM: 0 to 110 degrees with subpatellar crepitance. Flexion limited by pain. Strength Normal Patella: Patella does track normally. Patellar apprehension test: negative Patellar compression test: negative Stability: Qian's test: stable Posterior drawer: stable Medial collateral ligament: stable Lateral collateral ligament: stable, painful Chau's Test: positive with medial and joint line tenderness Sensation: intact to light touch to pressure and light touch. Imaging X-rays: 3 views of the knee were taken and independently reviewed. Osteochondroma noted to the proximal fibula. No evidence of acute fracture. Appropriate joint articulation alignment. Assessment: Right LCL sprain and probable meniscus tear Plan: We discussed the diagnosis and treatment options. He has a knee brace at home I recommended he wearfor the next 2 weeks with activity. We are going to have him work with physical therapy. If he doesnot progress adequately with physical therapy we will move forward with a MRI. I provided OTC pain management recommendations. We did discuss the use of a cortisone injection as well. He will follow up as needed. Radiology studies and anatomy of the knee reviewed. Patient verbalized understanding and agreement to our treatment plan. All of his questions were answered to his satifaction. Vicky Wayne PA-C This note contains medical terminology which is meant for communication between health care clinicians and providers. Please note that vocabulary/phrasing/abbreviations may not carry the same definitions as they would in normal conversational speech. Additionally voice recognition software was usedto generate this note. As a result, wrong word or '[id number]' substitutions may have occurred due to the inherent limitations of voice recognition software. There may be errors in the script that have gone undetected. Please consider this when interpreting information found in this chart. documented in this encounter Plan of Treatment Scheduled Referrals Name Type Priority Associated Diagnoses Orde r Schedule Physical Therapy Referral Routine Sprain of lateral collateral ligament of right knee, initial encounter Ordered: 05/16/2023 documented as of this encounter Results * XR Knee Rt 3 Views [...] posterior-lateral aspect of the proximalfibular metadiaphysis. Vicky BROWN documented in this encounter Visit Diagnoses Diagnosis Sprain of lateral collateral ligament of right knee, initial encounter- Primary Injury of right knee, initial encounter Acute pain of right knee documented in this encounter Care Teams Nutritional Services Director Relationship Specialty Start Date End Date Needs Pcp, [place] [address] PCP - General 05/01/16 documented as of this encounter
--- OUTSIDE RECORDS SUMMARY | 2023-08-13 19:22 | XMS_ITS | Encounter Summary ---
Author Organization [facility] Address [address] [place] [address] Care Team Providers Care Public Safety Police Name Role Phone Needs Pcp, Assignment Primary Care Provider [phone]- [phone] Reason for Visit * Procedure/Equipment (Routine) - Incomplete Specialty Diagnoses / Procedures Referred By Contac t Referred To Contact Diagnoses Acute pain of right knee Procedures XR Knee Rt 3 Views Vicky Wayne PA-C [address] [place] [id number] Referral ID Status Reason Start Date Expiration Date V isits Requested Visits Authorized [id number] Incomplete 05/16/2023 08/14/2024 1 1 Encounter Details Date Type Department Care Team (Late st Contact Info) Description 05/16/2023 7:35 AM CDT Ancillary Procedure [facility] [address] Radiology [address] [place] [address] Vicky Wayne PA-C [address] [place] [address] [address] Acute pain of right knee Social History Tobacco Use Types Packs/Day Years Used Date Smoking Tobacco: Never Alcohol Use Standard Drinks/Week Comments Yes 0 (1 standard drink = 0.6 oz pur e alcohol) Sex and Gender Information Value Date Recorded Sex Assigned at Not on file Gender Identity Not on file Sexual Orientation Not on file documented as of this encounter Plan of Treatment Not on file documented as of this encounter Procedures Procedure Name Priority Date/Time Associated Diagnosis Comments XR KNEE RT 3 VIEWS Routine 05/16/2023 7: 40 AM CDT Acute pain of right knee documented in this encounter Results * XR Knee Rt [...] of the proximalfibular metadiaphysis. Vicky COOL GD documented in this encounter Visit Diagnoses Diagnosis Acute pain of right knee documented in this encounter Care Teams Public Safety Police Relationship Specialty Start Date End Date Needs Pcp, [place] [address] PCP - General 05/01/16 documented as of this encounter
--- NOTE | 2023-08-21 12:22 | W.PM.SLEEP ---
Sleep Study Details Details Interpreting Provider: Taran in Date of Sleep Study: 08/13/23 Sleep Study Details: STUDY TYPE:? Home unattended ? BMI:? 40.7 ORDERING PROVIDER:? Nilo INDICATION:? Concerned about sleep apnea ? SLEEP SUMMARY:? 363 minutes monitored RESPIRATORY SUMMARY:? AHI 17, supine 38.2, right lateral 5.2, left lateral 5.3 Low oxygen 86 6.1% of study oxygen less than 90% Snoring 78.3% PERIODIC LIMB MOVEMENTS OF SLEEP:? Not recorded CARDIAC:? Range 46-87, mean 61.2 IMPRESSION:? Moderate obstructive sleep apnea RECOMMENDATION: Treatment options include CPAP or dental appliance. Weight loss is also recommended.
== END 2023-08-13 19:20 | disposition home or self-care (01) ==
LOC: SLEEP 19:20
PROVIDERS: Visit Provider Otolaryngology
DX: G47.33 Obstructive sleep apnea (adult) (pediatric) (principal)
CPT/HCPCS: 95806

== ENCOUNTER 2024-02-06 07:32 | Outpatient (CLI) | payer OTHER, SELFPAY | END 2024-02-06 07:33 | disposition home or self-care (01) | LOC: NFLDREF 02-07 05:16 | PROVIDERS: PCP Family Medicine; Referring Provider Family Medicine; Visit Provider Family Medicine | DX: E78.2 Mixed hyperlipidemia (principal) | CPT/HCPCS: 80053; 80061 ==

== ENCOUNTER 2024-02-25 07:30 | Outpatient (CLI) | payer OTHER, SELFPAY | END 2024-02-25 07:31 | disposition home or self-care (01) | LOC: NFLDREF 02-26 02:33 | PROVIDERS: PCP Family Medicine; Referring Provider Family Medicine; Visit Provider Family Medicine | DX: R73.01 Impaired fasting glucose (principal) | CPT/HCPCS: 82947 ==